=== PATIENT | male | born 1970 | race Caucasian/White ===

== ENCOUNTER 2022-10-22 05:47 | Outpatient (CLI) | payer BC ==
[~2022-10-22] VITALS: Ht 182.9 cm; Wt 108.9 kg
[2022-10-22] MEDS ORDERED: BUDE10.22 IH (09:42)
[2022-10-22] MEDS ORDERED: METF-397 PO (09:42)
[2022-10-22] MEDS ORDERED: SIMV20TA26 PO (09:42)
[2022-10-22] MEDS ORDERED: HYDR25TA4 PO (09:42)
[2022-10-22] MEDS ORDERED: RT-ALBUINH INH (09:42)
== END 2022-10-22 09:44 | disposition home or self-care (01) ==
LOC: PREOP 05:47
PROVIDERS: ATTEND Surgery
DX: Z01.818 Encounter for other preprocedural examination (principal)

== ENCOUNTER 2022-11-03 07:23 | Day surgery (SDC) | payer BC ==
[~2022-11-03] VITALS: Ht 182.9 cm; Wt 108.9 kg
[~2022-11-03 07:23] MED LIST: BUDE10.22 IH; HYDR25TA4 PO; METF-397 PO; RT-ALBUINH INH; SIMV20TA26 PO
[2022-11-03] MEDS ORDERED: LACTATED RINGERS 1,000 ML IV STA (07:30)
[2022-11-03 07:45] VITALS: BP 128/77
[2022-11-03] MEDS ORDERED: MIDAZOLAM 2 MG/2 ML (VERSED) VIAL ONE (08:27)
[2022-11-03] MEDS ORDERED: PROPOFOL INJECTION 50 ML IV ONE ×2 (08:27→08:40)
--- NOTE | 2022-11-03 08:29 | Progress Note-Pre Operative ---
Pre-Operative Progress Note Date of Available H&P: Oct 21, 2022 Date H&P Reviewed: Nov 03, 2022 Time H&P Reviewed: 08:21 History & Physical: H&P Reviewed, Patient Examed, No changes noted Pre-Operative Diagnosis: screening colonoscopy DIVYA TIM DO Nov 03, 2022 08:29
[2022-11-03 09:10] VITALS: BP 96/58
--- NOTE | 2022-11-03 09:13 | Progress Note-Post Operative ---
Post-Operative Progess Note Surgeon (s)/Garde Manager (s) Surgeon DIVYA TIM DO Garde Manager: Gabriele Tom, PAULII Pre-Operative Diagnosis screening colonoscopy Post-Operative Diagnosis Polyps diverticula int hemorrhoids Procedure & Operative Findings Date of Procedure 11/03/22 Procedure Performed/Findings Colonoscopy with snare polypectomy PROCEDURE NOTE: After informed consent was obtained, the patient was brought to the endoscopy suite, placed in bed in left lateral decubitus position. He was administered IV sedation by the GERIATRIC ASSISTANT who then monitored his vitals the entire time, heart rate, blood pressure and pulse ox and the scope was inserted. On the way in, in the Ascending colon found a larger polyp; removed with hot snare in two pieces. I then pushed all the way to about 150 cm and pushed into the cecum, took a picture of the appendiceal orifice and noted the ileocecal valve. Then slowly withdrew the scope; tried to suction up the polyp, but it was too large to come through the scope. I then had to use a Gonzalez net to grab the polyp and insufflated to look circumferentially at the witt starting in the cecum, up the ascending colon to the hepatic flexure, then down the transverse colon, to the splenic flexure and into the descending colon. Saw another polyp here, but removed the scope entirely to get the earlier polyp out. Then reinserted the scope up to the Descending colon, found the polyp and removed it with snare polypectomy. Next, continues down into the sigmoid and then into the rectal vault and retroflexed the scope. Took picture of the internal hemorrhoids. I had also noted and taken pictures of diverticula throughout the left side of the colon. The patient tolerated the procedure. He was recovered in endoscopy suite. Recommended for repeat colonoscopy in 1 year, because of the large polyp removed in pieces. Anesthesia Type IV sedation by GERIATRIC ASSISTANT Estimated Blood Loss Estimated blood loss (mL): scant Specimens/Packing Specimens Removed asc colon polyp decs colon polyp DIVYA TIM DO Nov 03, 2022 09:13
--- NOTE | 2022-11-03 09:14 | Endoscopy Discharge Instruct ---
Endo Procedure/Findings Findings 1.: Polyp 2.: Diverticulosis 3.: Internal Hemorrhoids Discharge Instructions - Activity: You might feel a little sleepy until tomorrow. This is due to the medicine you received to relax you. Until tomorrow, you should: NOT drive a car, operate machinery or power tools. NOT drink any alcoholic beverages. NOT make any important decisions or sign importortant papers. Do not return to work until tomorrow, unless otherwise instructed. Resume previous activities tomorrow. Diet: Start by taking liquids. If you tolerate liquids, advance to solid food. 1.: Colonoscopy in 1 year Notify Physician - If you experience excessive bleeding, unusual abdominal pain, fever, or chest pain, contact your doctor immediately. Follow-Up: Other Follow up in my office in one week DIVYA TIM DO Nov 03, 2022 09:14
[2022-11-03 09:15] VITALS: BP 101/65
[2022-11-03 09:20] VITALS: BP 104/63
[2022-11-03 09:50] VITALS: BP 104/63
--- NOTE | 2022-11-03 13:15 | Anesthesia-General Post-Op ---
MAC Patient Condition Mental Status/LOC: Same as Preop Cardiovascular: Satisfactory Nausea/Vomiting: Absent Respiratory: Satisfactory Pain: Controlled Complications: Absent Post Op Complications Complications None Follow Up Care/Instructions Patient Instructions None needed. Anesthesiology Discharge Order Discharge Order Patient is doing well, no complaints, stable vital signs, no apparent adverse anesthesia problems. No complications reported per nursing. REGINA BOWMAN CRNA Nov 03, 2022 13:15
== END 2022-11-03 10:01 | disposition home or self-care (01) ==
LOC: ENDO 07:23
PROVIDERS: ATTEND Surgery
DX: Z12.11 Encounter for screening for malignant neoplasm of colon (principal); D12.2 Benign neoplasm of ascending colon; K63.5 Polyp of colon; K57.30 Diverticulosis of large intestine without perforation or abscess without bleeding; K64.8 Other hemorrhoids; Z80.0 Family history of malignant neoplasm of digestive organs; E66.9 Obesity, unspecified; Z68.32 Body mass index [BMI] 32.0-32.9, adult

== ENCOUNTER 2022-11-05 05:58 | Emergency (ER) | payer BC ==
[~2022-11-05] VITALS: Ht 193 cm; Wt 104.0 kg
--- NOTE | 2022-11-05 06:31 | ED GI ---
General Chief Complaint: Rect Problems Stated Complaint: RECTAL BLEEDING Nursing Triage Note: PATIENT STATES THURSDAY HE HAD A COLONOSCOPY BY [facility], STATES HAD POLYPS REMOVED AND DX DIVERTICULITIS. PATIENT STATES STARTING AT 0430 THIS AM HAS HAD DARK RED BLOOD STOOLS. Source of Information: Patient Exam Limitations: No Limitations History of Present Illness Date Seen by Provider: Nov 05, 2022 Time Seen by Provider: 06:16 Initial Comments 52-year-old male presents to the emergency department today for blood in his stools. He had a colonoscopy on 11/03 and 2 polyps were excised. He was also found to have internal hemorrhoids and diverticulosis. He states he was doing relatively well. He had a bowel movement this morning that he describes as mostly dark blood. He went to work and then had a similar episode. He came in for further evaluation. He states he called the [facility] emergency department and was advised to present here. Denies any fevers or chills. He is not on any blood thinning medications. No dizziness, lightheadedness. No abdominal pain. All other systems reviewed and negative except documented per HPI. Voice recognition software was used to help create this chart Allergies and Home Medications Allergies Coded Allergies: metoclopramide (Unverified Allergy, Unknown, 10/22/22) Patient Home Medication List Home Medication List Reviewed: Yes Albuterol Sulfate (Ventolin Hfa) 1 Puff Puff, 2 PUFF INH Q4H PRN for WHEEZING, (Reported) Entered as Reported by: RADHA ORTIZ on 10/22/22941 Budesonide/Formoterol Fumarate (Symbicort 80-4.5 Mcg Inhaler) 80 Mcg-4.5 Mcg/Actuation Hfa.aer.ad, 2 PUFF IH BID, (Reported) Entered as Reported by: RADHA ORTIZ on 10/22/22941 Hydrochlorothiazide (Hydrochlorothiazide) 25 Mg Tablet, 25 MG PO DAILY, ( Reported) Entered as Reported by: RADHA ORTIZ on 10/22/22941 Metformin HCl (Metformin HCl) 500 Mg Tablet, 500 MG PO BID, (Reported) Entered as Reported by: RADHA ORTIZ on 10/22/22941 Simvastatin (Simvastatin) 20 Mg Tablet, 20 MG PO HS, (Reported) Entered as Reported by: RADHA ORTIZ on 10/22/22941 Review of Systems Review of Systems Constitutional: see HPI Past Yoxpqnv-Mijmds-Eswcoe Hx Patient Social History Tobacco Use?: No Use of E-Cig and/or Vaping dev: No Substance use?: No Alcohol Use?: No Immunizations Up To Date First/Initial COVID19 Vaccinat: yes Second COVID19 Vaccination Patrick: yes Third COVID19 Vaccination Date: yes Seasonal Allergies Seasonal Allergies: No Past Medical History Surgeries: Yes (knee scope, jaw sx, hernia, colon resection) Appendectomy Respiratory: Yes Asthma Cardiac: Yes High Cholesterol, Hypertension Neurological: No Genitourinary: No Gastrointestinal: Yes Diverticulosis Musculoskeletal: No Endocrine: No (borderline ) HEENT: No Cancer: No Psychosocial: No Integumentary: No Blood Disorders: No Family Medical History Reviewed Nursing Family Hx No Pertinent Family Hx Physical Exam Vital Signs Vital Signs - First Documented 11/05/22 06:21 Temp 36.9 Pulse 104 Resp 22 B/P (MAP) 155/108 (124) Pulse Ox 97 O2 Delivery Room Air Capillary Refill : Less Than 3 Seconds Height/Weight/BMI Height: '" Weight: lbs. oz. kg; 27.00 BMI Method: General Appearance: WD/WN, no apparent distress HEENT: normal ENT inspection Respiratory: chest non-tender, lungs clear, normal breath sounds Cardiovascular: regular rate, rhythm, no murmur Gastrointestinal: normal bowel sounds, non tender, soft Neurologic/Psychiatric: alert, normal mood/affect, oriented x 3 Skin: normal color, warm/dry Progress/Results/Core Measures Results/Orders Lab Results Laboratory Tests Test 11/05/22 06:36 Range/Units White Blood Count 6.7 4.3-11.0 10^3/uL Red Blood Count 4.61 4.30-5.52 10^6/uL Hemoglobin 13.7 13.3-17.7 g/dL Hematocrit 40 40-54 % Mean Corpuscular Volume 88 80-99 fL Mean Corpuscular Hemoglobin 30 25-34 pg Mean Corpuscular Hemoglobin Concent 34 32-36 g/dL Red Cell Distribution Width 13.4 10.0-14.5 % Platelet Count 253 130-400 10^3/uL Mean Platelet Volume 9.9 9.0-12.2 fL Immature Granulocyte % (Auto) 1 % Neutrophils (%) (Auto) 59 42-75 % Lymphocytes (%) (Auto) 28 12-44 % Monocytes (%) (Auto) 9 0-12 % Eosinophils (%) (Auto) 3 0-10 % Basophils (%) (Auto) 0 0-10 % Neutrophils # (Auto) 4.0 1.8-7.8 10^3/uL Lymphocytes # (Auto) 1.9 1.0-4.0 10^3/uL Monocytes # (Auto) 0.6 0.0-1.0 10^3/uL Eosinophils # (Auto) 0.2 0.0-0.3 10^3/uL Basophils # (Auto) 0.0 0.0-0.1 10^3/uL Immature Granulocyte # (Auto) 0.0 0.0-0.1 10^3/uL My Orders Orders - ANGELA MONTIEL DO Cbc With Automated Diff (11/05/22 06:28) Vital Signs/I&O 11/05/22 06:21 Temp 36.9 Pulse 104 Resp 22 B/P (MAP) 155/108 (124) Pulse Ox 97 O2 Delivery Room Air Blood Pressure Mean: 124 Departure Communication (Admissions) Patient is hemodynamically stable outside of some very mild borderline tac hycardia. He does appear quite anxious which may account for this. His blood pressures are normal. He has had no further bleeding here and is not on any blood thinning medications. Hemoglobin is 13.7. Unfortunately I do not have a comparison. He has no abdominal pain. I spoke to Dr. Tim. He request discharge home and he will see the patient in the clinic on . He did give patient strict return precautions for increased work persistent bleeding, dizziness lightheadedness or shortness of breath. He states understanding. He is discharged in stable condition. Impression Primary Impression: Bloody stools Disposition: HOME, SELF-CARE Condition: Stable Departure-Patient Inst. Referrals: [facility] (PCP) Primary Care Physician DIVYA TIM DO Patient Instructions: Bloody Stools, Adult (DC) Add. Discharge Instructions: Your blood counts are stable. We had no further bleeding here today. I spoke with Dr. Tim, he requests you see him in the office on . Return to the emergency department if you continue to have significant amounts of blood in your stool, if you develop dizziness, lightheadedness or shortness of breath. All discharge instructions reviewed with patient and/or family. Voiced understanding. ANGELA MONTIEL DO Nov 05, 2022 06:31
[2022-11-05 06:42] LABS: BASOPHILS % (AUTO) 0 % (0-10); EOSINOPHILS # (AUTO) 0.2 10^3/uL (0.0-0.3); EOSINOPHILS % (AUTO) 3 % (0-10); HEMATOCRIT 40 % (40-54); HEMOGLOBIN 13.7 g/dL (13.3-17.7); LYMPHOCYTES # (AUTO) 1.9 10^3/uL (1.0-4.0); LYMPHOCYTES % (AUTO) 28 % (12-44); MEAN CORPUSCULAR HEMOGLOBIN 30 pg (25-34); MEAN CORPUSCULAR HGB CONC 34 g/dL (32-36); MEAN CORPUSCULAR VOLUME 88 fL (80-99); MEAN PLATELET VOLUME 9.9 fL (9.0-12.2); MONOCYTES # (AUTO) 0.6 10^3/uL (0.0-1.0); MONOCYTES % (AUTO) 9 % (0-12); NEUTROPHILS % (AUTO) 59 % (42-75); PLATELET COUNT 253 10^3/uL (130-400); WHITE BLOOD COUNT 6.7 10^3/uL (4.3-11.0)
[2022-11-05 07:06] VITALS: BP 155/108
== END 2022-11-05 07:06 | disposition home or self-care (01) ==
LOC: EDUNIT# 05:58 → ER 06:00
DX: K92.1 Melena (principal); Z28.310 Unvaccinated for COVID-19
CPT/HCPCS: 36415; 85025; 99281